=== PATIENT | female | born 1970 | race Caucasian/White ===

== ENCOUNTER 2019-03-15 08:21 | Day surgery (SDC) | payer OTHER ==
[2019-03-15] MEDS ORDERED: LIDOCAINE 4% SOLUTION 50 ML BTL (09:17)
[2019-03-15] MEDS ORDERED: MIDAZOLAM 1 MG/ML 2 ML INJ ×2 (10:16)
[2019-03-15] MEDS ORDERED: FENTAnyl 50 MCG/ML VIAL (10:16)
== END 2019-03-15 14:27 | disposition home or self-care (01) ==
LOC: GIL 08:21
DX: K92.1 Melena (principal); K64.4 Residual hemorrhoidal skin tags; K29.50 Unspecified chronic gastritis without bleeding
CPT/HCPCS: 43239; 84703; 88305; 88312